=== PATIENT | male | born 1970 | race Caucasian/White ===

== ENCOUNTER → 2021-01-25 | Outpatient (CLI) | payer OTHER ==
[~2021-01-25] MED LIST: Norco 5-325 Ta1 EACH PO
[2021-01-25 16:35] LABS: Alanine Aminotransfer (ALT/SGP 52 U/L (12-78); Albumin, Blood 3.8 g/dL (3.4-5.0); Alk Phos 84 U/L (50-136); Anion Gap 6 mmol/L (6-16); Aspartate Aminotrans (AST/SGOT 28 U/L (12-37); Bilirubin, Total 0.4 mg/dL (0.1-1.0); Blood Urea Nitrogen 12 mg/dL (8-24); CO2, Blood 23 mmol/L (21-32); Calcium, Blood 9.2 mg/dL (8.5-10.1); Chloride, Blood 109 mmol/L (98-108); Globulin, Blood 3.7 g/dL (2.2-4.0); Glomerular Filtration Rate >60 (60-); Glucose, Blood 95 mg/dL (70-99); Potassium, Blood 4.4 mmol/L (3.5-5.5); Sodium, Blood 138 mmol/L (136-145); Total Protein, Blood 7.5 g/dL (6.4-8.2)
== END | disposition home or self-care (01) ==
LOC: LAB SHORT 14:40 → LAB 14:40
PROVIDERS: Internal Medicine Infectious Disease
DX: B20 Human immunodeficiency virus [HIV] disease (principal)
CPT/HCPCS: 80053